=== PATIENT | female | born 1970 | race Caucasian/White ===

== ENCOUNTER → 2016-08-18 | Outpatient (CLI) | payer OTHER ==
--- NOTE | 2016-08-18 09:27 | US ---
Sonography Limited to the Right Upper Quadrant of the Abdomen CLINICAL HISTORY: 46-year-old female with elevated liver function tests. ICD 10 Diagnostic Code: R74.8. TECHNIQUE: A curvilinear 5 MHz transducer was used to sonographically evaluate the right upper quadra nt of the abdomen. Color Doppler was used. COMPARISON STUDY: None. FINDINGS: The pancreatic contour is normal. The abdominal aorta is normal in size, and tapers normall y. The visualized IVC is normal in caliber. The hepatic vein trifurcation is normal. The main portal vein is patent. The liver is normal in size, measuring 12.6 cm along the right midaxillary line. Ther e is no intra or extrahepatic bile duct dilatation. The common bile duct measures 2.7 mm. The gallbl adder is moderately distended, and there is no evidence of cholelithiasis, sludge, polyp, wall thicke kathi, pericholecystic fluid, or sonographic Duobis sign. A junctional fold is seen. The gallbladder w all thickness is 1.9 mm. The right kidney is normal in size, shape, and contour, with a normal renal cortical thickness, and no focal renal mass or hydronephrosis, and measures 11.4 x 5.5 x 5.1 cm. The renal cortical thickness is 1.8 cm. There is no ascites or right pleural effusion. IMPRESSION: Normal study.
== END ==
LOC: CIMAGING 08:40
PROVIDERS: ATTEND Internal Medicine Gastroenterology
DX: R74.8 Abnormal levels of other serum enzymes (principal)
CPT/HCPCS: 76705-PO